=== PATIENT | female | born 1970 | race Two or more races ===

== ENCOUNTER 2017-04-26 14:03 | Emergency (ER) | payer MEDICAID ==
[~2017-04-26] VITALS: Ht 152.4 cm; Wt 73.5 kg
[2017-04-26 14:45] VITALS: BP 118/72; Ht 152.4 cm; Wt 73.5 kg
== END 2017-04-26 16:14 | disposition home or self-care (01) ==
LOC: ED 14:03
DX: R10.2 Pelvic and perineal pain (principal); N89.8 Other specified noninflammatory disorders of vagina; Z90.49 Acquired absence of other specified parts of digestive tract
CPT/HCPCS: 87491; 87591; J0696; J1885